=== PATIENT | male | born 1960 | race Caucasian/White ===

== ENCOUNTER 2018-09-15 15:04 | Inpatient (IN) | payer OTHER ==
[2018-09-15 15:26] VITALS: BMI 29.3
--- NOTE | 2018-09-15 15:29 | PDOC ---
Rapid Medical Evaluation Chief Complaint: CVA/TIA Time Seen by Provider: 09/15/18 15:21 Medical Evaluation: Allergies Allergy/AdvReac Type Severity Reaction Status Date / Time No Known Allergies Allergy Verified 09/15/18 15:22 09/15/18 15:23 I have performed a brief in-person evaluation of this patient. The patient presents with a chief complaint of: sent from PMD for eval- acute onset weakness, dizzy, some SOB las tpm and persistant today Pertinent physical exam findings: quiet, + dizzy I have ordered the following: CTScan, Labs, Ekg The patient will proceed to the ED for further evaluation 09/15/18 15:29 09/15/18 15:29 Discharge Disposition - Diagnosis Dizziness - Referrals - Patient Instructions - Post Discharge Activity
--- NOTE | 2018-09-15 15:56 | PDOC ---
History of Present Illness - General Chief Complaint: CVA/TIA Stated Complaint: DIZZINESS Time Seen by Provider: 09/15/18 15:21 History Source: Patient Exam Limitations: No Limitations - History of Present Illness Initial Comments: 09/15/18 15:53 [id number] with h/o CAD, AICD, paroxysmal SVT, CHF, IDDM, HTN, CKD, hypercholesterolemia, diverticulitis, tobacco use (smoker), and medication non- adherence who was instructed to come to the ED by his PCP for acute onset weakness, lightheadedness, and mild SOB all since yesterday evening, as well as fleeting episodes of left lip drooping and mildly slurred speech since early this morning (family cannot recall what time). He had a mild frontal headache last night but has not had this today. The patient and his state he was recently switched from furosemide to torsemide because he had "more congestion than normal". Otherwise they note no recent f/c/n/v/d/c, numbness, tingling, weakness, room-spinning sensation, palpitations, chest pain, or other symptoms. He has been able to walk normally despite the lightheadedness, and denies LOC or falls. Past History - Past Medical History Allergies/Adverse Reactions: Allergies Allergy/AdvReac Type Severity Reaction Status Date / Time No Known Allergies Allergy Verified 09/15/18 15:22 Home Medications: Ambulatory Orders Atorvastatin Ca [Lipitor] 20 mg PO HS 08/29/15 Furosemide [Lasix -] 80 mg PO BID 08/29/15 Insulin Lispro Protamin/Lispro [Humalog Mix 75-25 Kwikpen] 26 unit SQ PRN Aspirin [ASA -] 81 mg PO DAILY 09/15/18 Carvedilol [Coreg -] 12.5 mg PO BID 09/15/18 Insulin NPH Hum/Reg Insulin Hm [Humulin 70-30 Vial] 10 unit SQ AC 09/15/18 Magnesium Oxide [Magnesium] 400 mg PO BID 09/15/18 Sacubitril/Valsartan [Entresto 49 mg-51 mg Tablet] 2 each PO BID 09/15/18 Anemia: No Asthma: No Cancer: No Cardiac Disorders: Yes (CORONARY ARTERY DISEASE) CVA: No COPD: No CHF: Yes Dementia: No Diabetes: Yes GI Disorders: Yes (DYSPHAGIA,CHANGE IN BOWEL HABITS,CONSTIPATION,IBS,RECTAL BLEEDING) Disorders: No HTN: Yes Hypercholesterolemia: Yes Liver Disease: No Seizures: No Thyroid Disease: No - Surgical History Abdominal Surgery: No Appendectomy: No Cardiac Surgery: No Cholecystectomy: No Lung Surgery: No Neurologic Surgery: No Orthopedic Surgery: No - Immunization History Immunization Up to Date: Yes - Suicide/Smoking/Psychosocial Hx Smoking History: Never smoked Have you smoked in the past 12 months: No Number of Cigarettes Smoked Daily: 3 If you are a former smoker, when did you quit?: 01/2015 'Breaking Loose' booklet given: 02/25/15 Hx Alcohol Use: No Drug/Substance Use Hx: No Substance Use Type: None Hx Substance Use Treatment: No Review of Systems - Review of Systems Able to Perform ROS?: Yes Comments:: 09/15/18 15:55 GEN: generalized weakness, no fever, chills, malaise, or weight change HEENT: no ear pain, sore throat, vision change, or eye pain CV: no chest pain, palpitations, lightheadedness, syncope, or edema RESP: SOB, no cough, no wheezing GI: no abdominal pain, nausea, vomiting, diarrhea, constipation, or white/black/ bloody stool : no dysuria, hematuria, incontinence, retention, bleeding, or discharge MSK: no neck/back pain, muscle weakness/pain, or joint swelling/pain NEURO: vertigo, no headache, seizure, numbness, tingling, or focal weakness PSYCH: no substance use, no behavior change SKIN: no jaundice, no rash ROS otherwise negative except as noted in HPI *Physical Exam - Vital Signs Last Vital Signs Temp Pulse Resp BP Pulse Ox 97.9 F 72 18 103/77 100 09/15/18 15:22 09/15/18 15:22 09/15/18 15:22 09/15/18 15:22 09/15/18 15:22 - Physical Exam Comments: 09/15/18 16:30 GENERAL: well-appearing, A/Ox4, no distress, pleasant E[place]an-speaking male, accompanied by , answers questions appropriately HEENT: PERRLA, EOMI, moist mucous membranes NECK/BACK: no midline ttp, no spinal stepoff or deformity, no hematoma, full ROM , neck supple CARDIOVASCULAR: regular rate/rhythm, normal S1S2, 2/6 holosystolic murmur, strong peripheral pulses, capillary refill <2 seconds, extremities wwp, no edema LUNGS/RESPIRATORY: no respiratory distress, CTAB GI/ABDOMEN: symmetric [id number], normoactive BS, soft, no ttp, no midline pulsatile masses : no CVA tenderness EXTREMITIES: no muscle atrophy, no acute deformity SKIN: warm and dry, no pallor, no jaundice, no rash, no bruising, no skin breakdown, no cuts, no lesions NEUROLOGICAL: GCS 15, CN II-XII grossly intact, 5/5 strength proximally and distally, no facial droop NIH Stroke Scale - Last Known Well Date/Time & Onset Date Last Known Well: 09/14/18 Time Last Known Well: 19:00 - Initial Evaluation Level of consciousness: Alert Ask patient the month and their age: Answers both correctly Ask patient to open & close eyes; make fist and let go: Obeys both correctly Best gaze (horizontal eye movement): Normal Visual field testing: No visual field loss Facial paresis (Show teeth/raise eyebrows/close eyes tight): Normal symmetrical movement Motor Function: Left Arm: Normal Motor Function: Right Arm: Normal (extends arm 90 (or 45) degrees for 10 seconds without drift Motor Function: Left Leg: Normal (extends leg 30 degrees for 5 seconds without drift) Motor Function: Right Leg: Normal (extends leg 30 degrees for 5 seconds without drift) Limb Ataxia: No ataxia Sensory(Use pinprick test arms,legs,trunk,face/side to side): Normal Best language (Describe picture, name items, read sentences): No Aphasia Dysarthria (read several words): Normal articulation Extinction and Inattention: No abnormality - Total Score NIH Stroke Scale Score: 0 tPA Exclusion checklist 3-4.5h - Time Elapsed Date last known well: 09/14/18 Time last known well: 20:00 Elaspsed time: 1 Day(s) and 0 Hour(s) and 43 Minutes - Thrombolytic Therapy Candidate Is patient eligible for thrombolytic therapy: No - Exclusion Criteria 3-4.5 hr SBP greater than 185 or DBP greater than 110mmHg despite tx: No Recent IC/spinal surgery,head trauma or stroke<3mos.: No Hx IC hemorrhage, IC neoplasm, AV malformation or aneurysm: No Active internal bleeding: No Blding diathesis(low plt ct, inc PTT,INR>1.7 or use of NOAC): No Symptoms suggest subarachnoid hemorrhage: No CT demonstrates multilobar infarct(>1/3 cerebral hemiphere): No Arterial puncture at noncompressible site in previous 7 days: No Blood glucose concentration less than 50mg/dL (2.7mmol/L): No - Relative Exclusion Criteria 3-4.5 hr Life expectancy <1 yr or severe co-morbid illness: No : No Patient/family refused: No Rapid improvement: Yes Stroke severity too mild: Yes Recent acute UT (w/in previous 3 months): No Seizure at onset with postictal residual neuro impairments: No Major surgery or serious trauma w/in previous 14 days: No Recent GI or hemorrhage (w/in previous 21 days): No - Add'l Relative Exclusion 3-4.5 hr Age > 80: No Hx of both diabetes AND prior ischemic stroke: No Taking an oral anticoagulant regardless of INR: No NIHSS >25: No - Ineligibility reason(s) Reasons No tPA given: Outside of window - delayed arrival, See reason(s) noted above Heart Score/ECG Review - History History: Slightly suspicious - Electrocardiogram EKG: Normal - Age Age: 45-65 - Risk Factors Risk Factors Heart Score: Yes Hx Hypercholesterolemia, Yes Hx Hypertension, Yes Hx Diabetes, Yes Smoking History, Yes Positive family hx of cardiac disease Based on the list above the patient has:: >/=3 risk factors or Hx atherosclerotic disease - Troponin Troponin: 1-3x normal limit - Score Heart Score - Total: 4 #1 09/15/18 15:21 Sinus rhythm, rate 66, left axis deviation, Q waves in II, III, and aVF which are all old compared with 2016, an TWI in I, aVL, and V6 which are old as well. Critical Care Time/MDM Note - Medical Decision Making Note: 09/15/18 16:34 [id number] with CAD, HTN, HLD, IDDM and CHF p/w several complaints including lightheadedness, chest and tongue heaviness, congested feeling, and yesterday had a headache (resoved). Initial Vital Signs Temp Pulse Resp BP Pulse Ox 97.9 F 72 18 103/77 100 09/15/18 15:22 09/15/18 15:22 09/15/18 15:22 09/15/18 15:22 09/15/18 15:22 Exam: As noted in Physical Exam section. DDX IBNLT: dehydration, orthostatic hypotension, ACS, CHF exacerbation pre- syncope, TIA, etc W/U ordered: Labs as noted below, EKG TX ordered: None at this time EKG: Reviewed; results as noted in ECG Review section. Laboratory Tests 09/15/18 09/15/18 09/15/18 16:00 16:00 16:00 WBC 6.1 RBC 4.45 Hgb 13.2 Hct 39.4 MCV 88.5 MCH 29.6 MCHC 33.4 RDW 20.1 H Plt Count 233 MPV 8.8 Absolute Neuts (auto) 2.9 Neutrophils % 48.0 D Lymphocytes % 35.9 D Monocytes % 12.9 H D Eosinophils % 2.5 D Basophils % 0.7 D Nucleated RBC % 0 PT with INR 12.10 INR 1.03 Sodium 137 Potassium 4.6 Chloride 106 Carbon Dioxide 26 Anion Gap 6 L BUN 19.2 H Creatinine 1.3 Est GFR (CKD-EPI)AfAm 69.71 Est GFR (CKD-EPI)NonAf 60.14 Random Glucose 127 H Calcium 8.6 Magnesium 2.2 Total Bilirubin 1.3 H AST 11 L ALT 19 Alkaline Phosphatase 102 Creatine Kinase 50 Troponin I 0.06 H B-Natriuretic Peptide 1502.5 H Total Protein 7.1 Albumin 3.8 Patient's repeat exam is benign. However his family states that about once an hour he is having 2-minute episodes of "heavy speech" and complains of tongue heaviness. CT Head shows possible small right insular cortical infarct. I have spoken with Dr. Schneider's DARELL Marry Lind and placed consult order. She will come see the patient and review orders; question is whether this is an acute process or atypical migraine or other process. States they may end up doing CTA versus MRI versus other additional diagnostic studies. Vital Signs Temperature 97.9 F 09/15/18 15:22 Pulse Rate 71 09/15/18 17:03 Respiratory Rate 16 09/15/18 17:03 Blood Pressure 121/86 09/15/18 17:03 O2 Sat by Pulse Oximetry (%) 95 09/15/18 17:03 09/15/18 19:44 The Pt is unsafe for discharge at this time. They require further hospital observation, workup, and treatment. Microblog sent to [facility] for admission. Blank Decision to Admit order is placed per ED protocol. 09/15/18 20:[address] Little; patient going to inpatient Tele, to Dr. Ge, Decision to Admit order corrected. *DC/Admit/Observation/Transfer Diagnosis at time of Disposition: Slurred speech, Dizziness, Elevated troponin - Discharge Dispostion Condition at time of disposition: Guarded Decision to Admit order: Yes - Referrals Referrals: Irvin Davenport MD [Primary Care Provider] - - Patient Instructions - Post Discharge Activity
[2018-09-15 16:30] LABS: BASO % 0.7 % (0-2.0); EOS % 2.5 % (0-4.5); HEMATOCRIT 39.4 % (35.4-49); HEMOGLOBIN 13.2 GM/dL (11.7-16.9); LYMPH % 35.9 % (8-40); MCH 29.6 pg (25.7-33.7); MCHC 33.4 g/dl (32.0-35.9); MEAN CELL VOLUME 88.5 fl (80-96); MEAN PLT VOLUME 8.8 fl (7.5-11.1); MONO % 12.9 % (3.8-10.2); PLATELET COUNT 233 K/MM3 (134-434); RBC 4.45 M/mm3 (4.00-5.60); RDW 20.1 % (11.9-15.9); WHITE BLOOD COUNT 6.1 K/mm3 (4.0-10.0)
[2018-09-15 16:48] LABS: INR 1.03 (0.83-1.09); PROTHROMBIN TIME (PATIENT) 12.1 SEC (9.7-13.0)
[2018-09-15 16:53] LABS: ALBUMIN 3.8 g/dl (3.4-5.0); BILIRUBIN,TOTAL 1.3 mg/dL (0.2-1); BLOOD UREA NITROGEN 19.2 mg/dL (7-18); CALCIUM 8.6 mg/dL (8.5-10.1); CREATININE 1.3 mg/dL (0.55-1.3); MAGNESIUM 2.2 mg/dL (1.8-2.4); N-TERMINAL BNP 1502.5 pg/ml (5-125); POTASSIUM 4.6 mmol/L (3.5-5.1); TOT PROT 7.1 g/dl (6.4-8.2)
--- NOTE | 2018-09-15 18:11 | PDOC ---
Documentation entered by Anjel Olmedo SCRIBE, acting as scribe for Riky Asher MD. Riky Asher MD: This documentation has been prepared by the Honorio luis Elijah, SCRIBE, under my direction and personally reviewed by me in its entirety. I confirm that the documentation accurately reflects all work, treatment, procedures, and medical decision making performed by me. Attending Attestation - Resident Resident Name: Jennifer Patel - ED Attending Attestation I have performed the following: I have examined & evaluated the patient, The case was reviewed & discussed with the resident, I agree w/resident's findings & plan - HPI HPI: 09/15/18 17:03 Patient is a 58 year old male with a significant past medical history of CAD, AICD, paroxysmal SVT, CHF, IDDM, HTN, CKD, hypercholesterolemia, diverticulitis , tobacco use (smoker), and medication non-adherence who presents to the ED with complaint of tongue heaviness and speech problem since last night. Pt notes he has been ahving some sob/cole for the past week, recently had his furosimide changed to torsamide. pt endorses mild chest pressure, denies any frenk cp, n/v, diarrhea, constipation, numbness, tingling, weakness, room- spinning sensation, palpitations. Allergies: NKA Card: [place] PCP: Dr. Davenport - Physicial Exam PE: 09/15/18 17:10 GENERAL: The patient is awake, alert, and fully oriented, Nontoxic - in no acute distress. HEAD: Normocephalic, atraumatic. EYES: extraocular movements intact, sclera anicteric, conjunctiva clear. ENT: Normal voice, Moist mucous membranes. NECK: Normal range of motion, supple LUNGS: Breath sounds equal, clear to auscultation bilaterally. No wheezes, no rhonchi, no rales. HEART: Regular rate and rhythm, normal S1 and S2 without murmur, rub or gallop. ABDOMEN: Soft, nontender, No guarding, no rebound. No CVA tenderness EXTREMITIES: Normal range of motion, no edema. PSYCH: Normal mood, normal affect. SKIN: Warm, Dry, normal turgor, NEURO: Mental status: The patient is oriented x3. Cranial nerves: Cranial nerves II through XII are intact Motor: The upper extremities are 5 over 5 in all muscle groups. The lower extremities are 5 over 5 in all muscle groups. Negative pronator drift Sensation: Sensation is intact to light touch throughout. romberg negative Cerebellar: [id number] is normal in both upper extremities. - Medical Decision Making 09/15/18 17:15 ddx metabolic derangement, chf, acs, ?togue heaviness - ?cva NIHSS = 0 09/15/18 19:25 labs reviewed bnp elevated trop borderline ct head notable for pssible small rith insular cortical infarct will admit for further management Heart Score/ECG Review - ECG Impressions Comment:: 09/15/18 17:18 Twelve-lead EKG was performed and reviewed by me. There is normal sinus rhythm with a normal rate. rate of 66 L axis deviation abnormal r wave progression NIH Stroke Scale - Last Known Well Date/Time & Onset Date Last Known Well: 09/14/18 Time Last Known Well: 19:00 - Initial Evaluation Level of consciousness: Alert Ask patient the month and their age: Answers both correctly Ask patient to open & close eyes; make fist and let go: Obeys both correctly Best gaze (horizontal eye movement): Normal Visual field testing: No visual field loss Facial paresis (Show teeth/raise eyebrows/close eyes tight): Normal symmetrical movement Motor Function: Left Arm: Normal Motor Function: Right Arm: Normal (extends arm 90 (or 45) degrees for 10 seconds without drift Motor Function: Left Leg: Normal (extends leg 30 degrees for 5 seconds without drift) Motor Function: Right Leg: Normal (extends leg 30 degrees for 5 seconds without drift) Limb Ataxia: No ataxia Sensory(Use pinprick test arms,legs,trunk,face/side to side): Normal Best language (Describe picture, name items, read sentences): No Aphasia Dysarthria (read several words): Normal articulation Extinction and Inattention: No abnormality - Total Score NIH Stroke Scale Score: 0
--- NOTE | 2018-09-15 21:55 | HP ---
CHIEF COMPLAINT: slurred speech Card: [place] PCP: Dr. Davenport HISTORY OF PRESENT ILLNESS: 58 year old man ex smoker w/ htn, dlp, brought in with for having left facial droop, 9/10 headache, tongue heaviness, slurred speech, swallowing difficulty which started 10pm 09/14. Headache resolved shortly after taking a tylenol. Other symptoms also resolved except for slurred speech and which lasted until shortly before arrival to ER. head ct read from er showed small right insular cortical infarct. ER course was notable for: (1) head ct (2) cxr (3) Recent Travel: no PAST MEDICAL HISTORY: CAD, AICD, paroxysmal SVT, CHF, IDDM, HTN, CKD, hypercholesterolemia, diverticulitis, Crohns dz - on Remicade PAST SURGICAL HISTORY: AICD placement Social History: Smoking: ex smoker (smoked only socially) Alcohol: no Drugs: no Family History: mother with bone cancer Allergies No Known Allergies Allergy (Verified 09/15/18 15:22) HOME MEDICATIONS: Home Medications Medication Instructions Recorded Atorvastatin Ca [Lipitor] 20 mg PO HS 08/29/15 Furosemide [Lasix -] 80 mg PO BID 08/29/15 Insulin Lispro Protamin/Lispro 26 unit SQ PRN 08/29/15 [Humalog Mix 75-25 Kwikpen] Aspirin [ASA -] 81 mg PO DAILY 09/15/18 Carvedilol [Coreg -] 12.5 mg PO BID 09/15/18 Insulin NPH Hum/Reg Insulin Hm 10 unit SQ AC 09/15/18 [Humulin 70-30 Vial] Magnesium Oxide [Magnesium] 400 mg PO BID 09/15/18 Sacubitril/Valsartan [Entresto 49 2 each PO BID 09/15/18 mg-51 mg Tablet] REVIEW OF SYSTEMS CONSTITUTIONAL: Absent: fever, chills, diaphoresis, generalized weakness, malaise, loss of appetite, weight change HEENT: Absent: rhinorrhea, nasal congestion, throat pain, throat swelling, difficulty swallowing, mouth swelling, ear pain, eye pain, visual changes CARDIOVASCULAR: Absent: chest pain, syncope, palpitations, irregular heart rate, lightheadedness , peripheral edema RESPIRATORY: Absent: cough, shortness of breath, dyspnea with exertion, orthopnea, wheezing, stridor, hemoptysis GASTROINTESTINAL: Absent: abdominal pain, abdominal distension, nausea, vomiting, diarrhea, constipation, melena, hematochezia GENITOURINARY: Absent: dysuria, frequency, urgency, hesitancy, hematuria, flank pain, genital pain MUSCULOSKELETAL: Absent: myalgia, arthralgia, joint swelling, back pain, neck pain SKIN: Absent: rash, itching, pallor HEMATOLOGIC/IMMUNOLOGIC: Absent: easy bleeding, easy bruising, lymphadenopathy, frequent infections ENDOCRINE: Absent: unexplained weight gain, unexplained weight loss, heat intolerance, cold intolerance NEUROLOGIC: Absent: , focal weakness or paresthesias, dizziness, unsteady gait, seizure, mental status changes, bladder or bowel incontinence present-headache, dysarthria, dsyphagia PSYCHIATRIC: Absent: anxiety, depression, suicidal or homicidal ideation, hallucinations. PHYSICAL EXAMINATION Vital Signs - 24 hr 09/15/18 09/15/18 15:22 17:03 Temperature 97.9 F Pulse Rate 72 Pulse Rate [ 71 Apical] Respiratory 18 16 Rate Blood Pressure 103/77 Blood Pressure 121/86 [Right] O2 Sat by Pulse 100 95 Oximetry (%) GENERAL: Awake, alert, and fully oriented, in no acute distress. HEAD: Normal with no signs of trauma. EYES: Pupils equal, round and reactive to light, extraocular movements intact, sclera anicteric, conjunctiva clear. No lid lag. EARS, NOSE, THROAT: Ears normal, nares patent, oropharynx clear without exudates. Moist mucous membranes. NECK: Normal range of motion, supple without lymphadenopathy, JVD, or masses. LUNGS: Breath sounds equal, clear to auscultation bilaterally. No wheezes, and no crackles. No accessory muscle use. HEART: Regular rate and rhythm, normal S1 and S2 without murmur, rub or gallop. ABDOMEN: Soft, nontender, not distended, normoactive bowel sounds, no guarding, no rebound, no masses. MUSCULOSKELETAL: Normal range of motion at all joints. No bony deformities or tenderness. No CVA tenderness. UPPER EXTREMITIES: 2+ pulses, warm, well-perfused. No cyanosis. No clubbing. No peripheral edema. LOWER EXTREMITIES: 2+ pulses, warm, well-perfused. No calf tenderness. No peripheral edema. NEUROLOGICAL: Cranial nerves II-XII intact. Normal speech. Normal gait. No gross motor or sensory deficits in extremities on my assessment PSYCHIATRIC: Cooperative. Good eye contact. Appropriate mood and affect. SKIN: Warm, dry, normal turgor, no rashes or lesions noted, normal capillary refill. Laboratory Results - last 24 hr 09/15/18 09/15/18 09/15/18 16:00 16:00 16:00 WBC 6.1 RBC 4.45 Hgb 13.2 Hct 39.4 MCV 88.5 MCH 29.6 MCHC 33.4 RDW 20.1 H Plt Count 233 MPV 8.8 Absolute Neuts (auto) 2.9 Neutrophils % 48.0 D Lymphocytes % 35.9 D Monocytes % 12.9 H D Eosinophils % 2.5 D Basophils % 0.7 D Nucleated RBC % 0 PT with INR 12.10 INR 1.03 Sodium 137 Potassium 4.6 Chloride 106 Carbon Dioxide 26 Anion Gap 6 L BUN 19.2 H Creatinine 1.3 Est GFR (CKD-EPI)AfAm 69.71 Est GFR (CKD-EPI)NonAf 60.14 Random Glucose 127 H Calcium 8.6 Magnesium 2.2 Total Bilirubin 1.3 H AST 11 L ALT 19 Alkaline Phosphatase 102 Creatine Kinase 50 Troponin I 0.06 H B-Natriuretic Peptide 1502.5 H Total Protein 7.1 Albumin 3.8 09/15/18 19:58 WBC RBC Hgb Hct MCV MCH MCHC RDW Plt Count MPV Absolute Neuts (auto) Neutrophils % Lymphocytes % Monocytes % Eosinophils % Basophils % Nucleated RBC % PT with INR INR Sodium Potassium Chloride Carbon Dioxide Anion Gap BUN Creatinine Est GFR (CKD-EPI)AfAm Est GFR (CKD-EPI)NonAf Random Glucose Calcium Magnesium Total Bilirubin AST ALT Alkaline Phosphatase Creatine Kinase Troponin I 0.06 H B-Natriuretic Peptide Total Protein Albumin imaging studies reviewed ekg showed sinus rhythm ASSESSMENT/PLAN: #CVA - neuro symptoms described above along with head ct findings. NIH stroke scale was 1. -admit to telemetry -cardiac monitoring -bed rest -npo -asa 325mg -high dose lipitor- 80mg po -echo -carotid duplex b/l -mri of brain -head/neck mra -PT eval -neuro consult -speech and swallow eval -neuro checks q4hrs -lipid panel, a1c #DM - -insulin sliding scale #CAD - sinus rhythm on ekg -asa -statin #Crohns - controlled on monthly injections of Remicade #DVT ppx -scds Visit type - Emergency Visit Emergency Visit: Yes ED Registration Date: 09/15/18 Care time: The patient presented to the Emergency Department on the above date and was hospitalized for further evaluation of their emergent condition. - New Patient This patient is new to me today: Yes Date on this admission: 09/15/18 - Critical Care Critical Care patient: No
[2018-09-15] MEDS ORDERED: ROSUVASTATIN CA 40 MG TABLET PO SCH (22:00)
[2018-09-15] MEDS ORDERED: INSULIN (NOVOLOG) ASPART 100 UNITS/ML 10ML VIAL ONE (22:13)
[2018-09-15] MEDS ORDERED: HEPARIN NA (PORCINE) 5,000 UNITS/ML 1ML VIAL ONE (22:13)
[2018-09-15] MEDS: HEPARIN NA (PORCINE) 5,000 UNITS/ML 1ML VIAL SQ SCH (22:21)
[2018-09-15] MEDS: INSULIN SLIDING SCALE (NOVOLOG) 1 VIAL SQ SCH (22:22)
[2018-09-16] MEDS ORDERED: FUROSEMIDE 40 MG TABLET (FP) PO SCH (06:00)
[2018-09-16] MEDS: INSULIN SLIDING SCALE (NOVOLOG) 1 VIAL SQ SCH ×3 (06:12→21:11)
[2018-09-16 09:00] LABS: HEMATOCRIT 42.1 % (35.4-49); HEMOGLOBIN 13.7 GM/dL (11.7-16.9); MCH 28.9 pg (25.7-33.7); MCHC 32.5 g/dl (32.0-35.9); MEAN CELL VOLUME 88.9 fl (80-96); MEAN PLT VOLUME 8.7 fl (7.5-11.1); PLATELET COUNT 219 K/MM3 (134-434); RBC 4.73 M/mm3 (4.00-5.60); RDW 19.5 % (11.9-15.9); WHITE BLOOD COUNT 6.1 K/mm3 (4.0-10.0)
[2018-09-16 09:27] LABS: BLOOD UREA NITROGEN 18.4 mg/dL (7-18); CREATININE 1.3 mg/dL (0.55-1.3); POTASSIUM 4.4 mmol/L (3.5-5.1)
[2018-09-16] MEDS ORDERED: SACUBITRIL/VALSARTAN 49 MG-51 MG TABLET PO SCH (10:00)
--- NOTE | 2018-09-16 10:17 | CONSULT ---
Admitting History and Physical - Primary Care Physician PCP: Aster Ge - Admission History of Present Illness: Per EMR: 58 year old man ex smoker w/ htn, dlp, brought in with for having left facial droop, 9/10 headache, tongue heaviness, slurred speech, swallowing difficulty which started 10pm 09/14. Headache resolved shortly after taking a tylenol. Other symptoms also resolved except for slurred speech and which lasted until shortly before arrival to ER. head ct read from er showed small right insular cortical infarct. Pt reports slurred speech came and went, with drooling and dysphagia. Presently , pt reports that he is back to normal but he feels exhausted as if he ran a marathon. He feels that his breathing is labored. No Dyspnea observed. Electrocardiagram reviewed with nursing. History Source: Patient, Family Member, Medical Record Limitations to Obtaining History: No Limitations, Language Barrier - Past Medical History Cardiovascular: Yes: CAD, CHF (sstolic CHF), HTN Renal/: Yes: Renal Inusuff Rheumatology: Yes: Gout Endocrine: Yes: Diabetes Mellitus - Smoking History Smoking history: Former smoker Have you smoked in the past 12 months: No Aproximately how many cigarettes per day: 3 If you are a former smoker, when did you quit?: 01/2015 - Alcohol/Substance Use Hx Alcohol Use: No - Social History ADL: Independent History of Recent Travel: No History - Admission Reason For Visit: DIZZINESS, SLURRED SPEECH,ELEVATED TROPONIN LEVEL - Diagnostics X-ray: Report Reviewed CT Scan: Report Reviewed Other: Report Reviewed (electrocardiagram) - General Mental Status: Alert and Oriented, Awake and Alert, Able to Follow Commands Attention: Intact Ability to Follow Directions: Excellent Head/Neck Control: WFL - Hearing Hearing: Normal Speech Evaluation - Communication Primary Language: TAIWANESE Communication: Yes: Within Normal Limits Oral Expression Ability: Yes: No Impairment - Speech Production Able to Make Needs Known: Yes: WNL Intelligibility: Yes: WNL - Speech Characteristics Voice Loudness: Normal Voice Pitch: Yes: Normal Voice Phonatory-based Quality: Yes: Normal Speech Pattern: Normal Speech Clarity: < 100% Nasal Resonance: Normal Articulation: Yes: Precise Rate of Speech: Intact - Language/Auditory Comprehension Follows: Yes: 2 Stage Simple Commands - Language/Verbal Expression Able to Respond to Simple Queries: Yes: WNL Able to Communicate Wants and Needs: Yes: WNL Functional Communication Status: Yes: WNL Attention: Yes: Intact - Memory/Perception terminal system operator Memory: Yes: WNL Short Term Memory: Yes: WNL - Swallow Evaluation/Bedside Assessment Current Nutritional Intake: NPO Oral Secretions: Yes: WFL Dentition: Yes: Adequate Facial Symmetry at Rest: Symmetrical Facial Symmetry on Retraction: Symmetrical Facial Movement: Controlled Sensation: Normal Against Resistance Opening: Normal Against Resistance Closing: Normal Pucker Lips: Normal Smile: Normal Lingual Movement: Normal, Symmetric Lingual Speed of Movement: Normal Lingual Movement Strgth Against Opposition: Normal Lingual Movement Characteristics: Normal Velopharyngeal Movement: Normal Laryngeal Movement: Able to Palpate Rate of Intake: WFL Bolus Size: WFL Labial Seal: WFL Chewing: WFL Oral Prep Time: WFL A-P Transit: WFL Pocketing: None Timing of Swallow: WFL Coughing/Throat Clear: No Change in Voice: No Recommendations - Speech Evaluation, Impression/Plan Impression: Speech,swallow,cognition,language intact. Abnormal electrocardiagram. Nursing aware - Disposition Discharge to: To be Determined - Dysphagia Impressions/Plan Swallowing Skills: WF Dysphagia Impressions: No Impairment *Silent aspiration: cannot be R/O at bedside Recommendations: Other (PO diet, once medically stable.) - Recommendations Diet Consistency: Regular Medication Administration: Whole with water Liquids: Thin Liquids
--- NOTE | 2018-09-16 11:42 | ECHO ---
Name: CHEIKHBRIAN Exam:Adult Echocardiogram Study Date: 09/16/2018 10:33 AM Age: 58 yrs Reason For Study: Source of Emboli Height: 66 in Weight: 182 lb BSA: 1.9 m2 MMode/2D Measurements & Calculations IVSd: 0.82 cm Ao root diam: 3.0 cm LVIDd: 6.5 cm LVIDs: 6.0 cm LVPWd: 1.1 cm EDV(Teich): 214.8 ml LVOT diam: 2.3 cm ESV(Teich): 178.9 ml LAV (MOD-bp): 114.0 ml Doppler Measurements & Calculations MV E max pastor: 75.5 cm/sec MR max pastor: 506.0 cm/sec MV A max pastor: 28.6 cm/sec MR max P.4 mmHg MV E/A: 2.6 TR max pastor: 331.8 cm/sec Med Peak E' Pastor: 3.6 cm/sec TR max P.6 mmHg Med E/e': 21.0 Lat Peak E' Pastor: 5.8 cm/sec Lat E/e': 13.0 Left Ventricle The left ventricle is moderately dilated. Left ventricular systolic function is severely reduced. Eje ction Fraction = 15-20%. The transmitral spectral Doppler flow pattern is suggestive of pseudonormalization . There is severe global hypokinesis of the left ventricle. The left ventricular apex is not well visualized. Right Ventricle The right ventricle is normal size. The right ventricular systolic function is grossly normal. Atria The left atrium is moderately dilated. The right atrium is mildly dilated. The interatrial septum is intact with no evidence for an atrial septal defect. Injection of agitated saline demonstrated no shunt. Mitral Valve The mitral valve is normal in structure and function. There is no mitral valve stenosis. There is mod erate mitral regurgitation. Tricuspid Valve The tricuspid valve is normal in structure and function. There is mild to moderate tricuspid regurgit ation. Right ventricular systolic pressure is elevated at 40-50mmHg. Aortic Valve The aortic valve opens well. No hemodynamically significant valvular aortic stenosis. No aortic regur gitation is present. Pulmonic Valve The pulmonic valve is not well seen, but is grossly normal. There is no pulmonic valvular stenosis. T race pulmonic valvular regurgitation. Great Vessels The aortic root is normal size. Pericardium/Pleura There is no pericardial effusion. Interpretation Summary The left ventricle is moderately dilated. There is severe global hypokinesis of the left ventricle. Left ventricular systolic function is severely reduced. Ejection Fraction = 15-20%. The left atrium is moderately dilated. Injection of agitated saline demonstrated no shunt. There is moderate mitral regurgitation. There is mild to moderate tricuspid regurgitation. Right ventricular systolic pressure is elevated at 40-50mmHg. The left ventricular apex is not well visualized. MD Phil Katz 09/16/2018 11:41 AM
--- NOTE | 2018-09-16 11:56 | EKG ---
Test Reason : Blood Pressure : / mmHG Vent. Rate : 066 BPM Atrial Rate : 066 BPM P-R Int : 164 ms QRS Dur : 114 ms QT Int : 436 ms P-R-T Axes : 054 -57 094 degrees QTc Int : 457 ms NORMAL SINUS RHYTHM POSSIBLE LEFT ATRIAL ENLARGEMENT LEFT AXIS DEVIATION INFERIOR INFARCT (CITED ON OR BEFORE 29-AUG-2015) ANTEROLATERAL INFARCT (CITED ON OR BEFORE 29-AUG-2015) NONSPECIFIC T WAVE ABNORMALITY ABNORMAL ECG WHEN COMPARED WITH ECG OF 29-AUG-2015 12:27, QRS DURATION HAS INCREASED Confirmed by THELMA LENNON MD ([id number]) on 09/16/2018 11:56:08 AM Referred By: Confirmed By:THELMA LENNON MD
[2018-09-16] MEDS: SACUBITRIL/VALSARTAN 49 MG-51 MG TABLET PO SCH ×3 (12:10→23:58)
[2018-09-16] MEDS: ASPIRIN 325 MG TABLET PO SCH (12:10)
[2018-09-16] MEDS: CARVEDILOL 12.5 MG TABLET (FP) PO SCH ×3 (12:10→23:58)
[2018-09-16] MEDS: HEPARIN NA (PORCINE) 5,000 UNITS/ML 1ML VIAL SQ SCH ×2 (12:11→21:10)
--- NOTE | 2018-09-16 12:51 | CONSULT ---
Consult - text type - Consultation Consultation Note: NEUROLOGY CONSULT GREATLY APPRECIATED: Events reviewed and discussed with residents Soniya and Long. and daughter at bedside aiding in translation. 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 S/P PPM/defibrillator. On: Estresto, lasix, asa 81, remicade, atorvastatin, carvedilol 12.5 mg BID, insulin and Mg. Notes history of headaches since a young age attributed to lack of sleep, missed meals, too much alcohol, and stress. He notes improvement in his headaches when started on Carvedilol for his cardiac disease approx 10 years ago. However, MONTGOMERY's have increased in frequency and now occur 2/week. Yesterday evening he and his family noted his speech was somewhat "slurred," however he went to bed but did not sleep well due to "chest pains" and SOB. He awoke in AM with persistent slurred speech and then a "strong" headache at the vertex of his head with photophobia, phonophobia, kinesiophobia. He took two Tylenol and laid down for two hours to rest and then woke up with acute "tingling" down the left hand. Today he feels "back to normal." He describes his previous strokes presented similarly with slurred speech, chest pains and headache; however these similarly resolved during hospitalization, left no discernable deficits and required no rehabilitation. Review of systems: poor sleep due to chest pains. He admits to depression and memory loss. FH+ father with stroke in 60s, 2 daughters in 20s with migraines, "growing pains " and bruxism. Head CT (reviewed): Mild atrophy. Multiple, chronic, B?L lacunar infarcts. Carotid duplex: Mild atherosclerotic disease without hemodynamically significant stenosis. EKG- Normal Sinus Rhythm, ECHO- EF= 15-30% A1c= 6.9%, BNP 1502, TG 164; Chol 122; HDL 33; MCV 88.5 Prior sleep study 04/2015 notes 4 PLMS and 12 limb arousals PEMA: 118/62. Cor reg. No bruits. Neck supple. Neg SLR. s/p PPM NEURO: Awake, alert, speech sparse but fluent. Ox "[facility]" "I don't know month or date." 2019. TRUMP. Can reverse. 05/22 recall @ 3 min. + glabella CNII-CNXII: EOM's full. Full . No facial. Gag ok. Motor: No drift. Strength normal. Reflexes normal and symmetric. L Babinski equivocal Coordination: No FTN dystaxia. Sensation: Normal to vibration and pinprick throughout. Romberg - Gait: Normal including heel and toes. Impression: Essentially normal neurological exam. No signs of a significant stroke. Transient Left hand numbness could be vascular (TIA) but more likely represents Complicated Migraine Underlying Migraine Headaches Pseudodementia suggesting Depression Suggest: Continue telemetry and cardiology evaluation to exclude a source of cardiogenic embolism (necessitating anticoagulation) Continue ASA, Statin, Continue carvedilol 12.5 mg BID for both migraine prophylaxis and BP control Check Fe++, Iron, TIBC, check B12, TSH Consider addition of Buproprion 150 mg XL qd for depression. Start Depakote ER 250 qHS x 4 days then 500 mg QHS for migraine prophylaxis. Neuro f/u as out patient. Thank you very much, Osmani Schneider MD
--- NOTE | 2018-09-16 12:55 | PN ---
Progress Note (short form) - Note Progress Note: pt seen/ examined in tele chart reviewed all f/u noted family at bedside Vital Signs Temp 97.4 F L 09/16/18 08:55 Pulse 57 L 09/16/18 08:55 Resp 18 09/16/18 08:55 BP 118/62 09/16/18 08:55 Pulse Ox 98 09/16/18 08:55 Intake & Output 09/15/18 09/16/18 09/16/18 23:59 11:59 23:59 Weight 182 lb 182 lb Other: Voiding Method Toilet Toilet Height 5 ft 6 in Body Mass Index (BMI) 29.3 Weight Measurement Method Standing Scale Weight Measurement Method Est/Stated by Patient Active Medications Aspirin (Asa -) 325 mg PO DAILY [facility] Last Admin: 09/16/18 12:10 Dose: Not Given Atorvastatin Calcium (Lipitor -) 80 mg PO HS [facility] Carvedilol (Coreg -) 12.5 mg PO BID [facility] Last Admin: 09/16/18 12:10 Dose: Not Given Furosemide (Lasix -) 80 mg PO BIDLASIX [facility] Last Admin: 09/16/18 06:24 Dose: 80 mg Heparin Sodium (Porcine) (Heparin -) 5,000 unit SQ BID [facility] Last Admin: 09/16/18 12:11 Dose: 5,000 unit Insulin Aspart (Novolog Vial Sliding Scale -) 1 vial SQ ACHS [facility]; Protocol Last Admin: 09/16/18 06:12 Dose: Not Given Sacubitril/Valsartan (Entresto 49 Mg-51 Mg Tablet) 1 tab PO BID [facility] Last Admin: 09/16/18 12:10 Dose: Not Given CBC, BMP 09/16/18 08:43 09/16/18 08:43 ech-- Severe lv dysfunction. ct head - reviewed. Physical exam Awake/ comfortable S1 s2 regular Lungs decreased at bases Abd- soft, NT no edema. Neuro- alert/ awake PLAN Acute cva Severe lv dysfunction Hypertension Meds reviewed Continue present care Neuro on case Cardiology to follow Discussed with pts family in detail will follow Discussed with Nursing staff also
[2018-09-16] MEDS: TORSEMIDE 20 MG TABLET (FP) PO SCH (13:57)
[2018-09-16] MEDS: ACETAMINOPHEN 325 MG TABLET (FP) PO PRN (13:57)
--- NOTE | 2018-09-16 14:12 | CON.CARD ---
Cardiology Consult (text) - Consultation Consultation Note: cc: change in speech hpi: 58 yo with h/o aflutter s/p ablation (no longer on ac), systolic chf (NICM ), ICD, CKD, HTN, CAD (no pci), possible scarlet fever/rheumatic fever as a child, DM here with change in speech. Yesterday noticed change in speech so came to ER, being evaluated for cva. Has had worsening cole past few weeks and following with cardio dr torre to uptitrate his diuretic. No cp palps dizzy loc pnd orthopnea le edema. pmh: per hpi, gout psh: ICD social: former fam: father with CHF and multiple DC's starting in his 50's. ros: per hpi; all others normal meds: Home Medications Medication Instructions Recorded Atorvastatin Ca [Lipitor] 20 mg PO HS 08/29/15 Furosemide [Lasix -] 80 mg PO BID 08/29/15 Insulin Lispro Protamin/Lispro 26 unit SQ PRN 08/29/15 [Humalog Mix 75-25 Kwikpen] Aspirin [ASA -] 81 mg PO DAILY 09/15/18 Carvedilol [Coreg -] 12.5 mg PO BID 09/15/18 Insulin NPH Hum/Reg Insulin Hm 10 unit SQ AC 09/15/18 [Humulin 70-30 Vial] Magnesium Oxide [Magnesium] 400 mg PO BID 09/15/18 Sacubitril/Valsartan [Entresto 49 2 each PO BID 09/15/18 mg-51 mg Tablet] Current Medications Generic Name Dose Route Start Last Admin Trade Name Freq PRN Reason Stop Dose Admin Acetaminophen 650 mg 09/16/18 13:42 09/16/18 13:57 Tylenol - PO 650 mg Q6H PRN Administration PAIN 6-10 Aspirin 325 mg 09/16/18 10:00 09/16/18 12:10 Asa - PO Not Given DAILY JANICE Atorvastatin Calcium 80 mg 09/16/18 22:00 Lipitor - PO HS JANICE Carvedilol 12.5 mg 09/16/18 10:00 09/16/18 12:10 Coreg - PO Not Given BID JANICE Heparin Sodium (Porcine) 5,000 unit 09/15/18 22:00 09/16/18 12:11 Heparin - SQ 5,000 unit BID JANICE Administration Insulin Aspart 1 vial 09/15/18 22:00 09/16/18 13:02 Novolog Vial Sliding Scale - SQ 2 unit ACHS JANICE Administration Protocol Sacubitril/Valsartan 1 tab 09/16/18 10:00 09/16/18 12:10 Entresto 49 Mg-51 Mg Tablet PO Not Given BID JANICE Torsemide 80 mg 09/16/18 14:00 09/16/18 13:57 Demadex - PO 80 mg BIDLASIX JANICE Administration Vital Signs Period Temp Pulse Resp BP Sys/Grossman Pulse Ox Last 24 Hr 97.4 F-98.2 F 57-72 16-20 103-126/60-86 95-100 nad rrr s1s2 no mrg cta bl nl eff aaox3 no le e/c/c abd nt nd pos bs pos dp pt, no carotid bruits no jaundice, diaphoresis Laboratory Last Values WBC 6.1 K/mm3 (4.0-10.0) 09/16/18 08:43 RBC 4.73 M/mm3 (4.00-5.60) 09/16/18 08:43 Hgb 13.7 GM/dL (11.7-16.9) 09/16/18 08:43 Hct 42.1 % (35.4-49) 09/16/18 08:43 MCV 88.9 fl (80-96) 09/16/18 08:43 MCH 28.9 pg (25.7-33.7) 09/16/18 08:43 MCHC 32.5 g/dl (32.0-35.9) 09/16/18 08:43 RDW 19.5 % (11.9-15.9) H 09/16/18 08:43 Plt Count 219 K/MM3 (134-434) 09/16/18 08:43 MPV 8.7 fl (7.5-11.1) 09/16/18 08:43 Absolute Neuts (auto) 2.9 K/mm3 (1.5-8.0) 09/15/18 16:00 Neutrophils % 48.0 % (42.8-82.8) D 09/15/18 16:00 Lymphocytes % 35.9 % (8-40) D 09/15/18 16:00 Monocytes % 12.9 % (3.8-10.2) H D 09/15/18 16:00 Eosinophils % 2.5 % (0-4.5) D 09/15/18 16:00 Basophils % 0.7 % (0-2.0) D 09/15/18 16:00 Nucleated RBC % 0 % (0-0) 09/15/18 16:00 PT with INR 12.10 SEC (9.7-13.0) 09/15/18 16:00 INR 1.03 (0.83-1.09) 09/15/18 16:00 Sodium 140 mmol/L (136-145) 09/16/18 08:43 Potassium 4.4 mmol/L (3.5-5.1) 09/16/18 08:43 Chloride 105 mmol/L (98-107) 09/16/18 08:43 Carbon Dioxide 28 mmol/L (21-32) 09/16/18 08:43 Anion Gap 7 MMOL/L (8-16) L 09/16/18 08:43 BUN 18.4 mg/dL (7-18) H 09/16/18 08:43 Creatinine 1.3 mg/dL (0.55-1.3) 09/16/18 08:43 Est GFR (CKD-EPI)AfAm 69.71 09/16/18 08:43 Est GFR (CKD-EPI)NonAf 60.14 09/16/18 08:43 POC Glucometer 206 UNITS (80-120) 09/16/18 12:56 Random Glucose 107 mg/dL (74-106) H 09/16/18 08:43 Hemoglobin A1c % 6.9 % (4.2-6.3) H 09/16/18 08:43 Calcium 9.0 mg/dL (8.5-10.1) 09/16/18 08:43 Magnesium 2.2 mg/dL (1.8-2.4) 09/15/18 16:00 Total Bilirubin 1.3 mg/dL (0.2-1) H 09/15/18 16:00 AST 11 U/L (15-37) L 09/15/18 16:00 ALT 19 U/L (13-61) 09/15/18 16:00 Alkaline Phosphatase 102 U/L (45-117) 09/15/18 16:00 Creatine Kinase 50 U/L (26-308) 09/15/18 16:00 Troponin I 0.06 ng/ml (0.00-0.05) H 09/15/18 19:58 B-Natriuretic Peptide 1502.5 pg/ml (5-125) H 09/15/18 16:00 Total Protein 7.1 g/dl (6.4-8.2) 09/15/18 16:00 Albumin 3.8 g/dl (3.4-5.0) 09/15/18 16:00 Triglycerides 164 mg/dL (0-150) H 09/16/18 08:43 Cholesterol 122 mg/dL (50-200) 09/16/18 08:43 Total LDL Cholesterol 71 mg/dL (5-100) 09/16/18 08:43 HDL Cholesterol 33 mg/dL (40-60) L 09/16/18 08:43 Blood Type O POSITIVE 09/15/18 08:43 Antibody Screen Negative 09/15/18 08:43 L/RHC 03/05: wedge 25, PA 65/30, RA 16, CI 1.8. 80-90% dLCx (small vessel): mild diffuse disease of RCA, OM1/OM2/LPL echo 02/05/15: moderate LV dilatation, sev reduced lvef (25-30%), global HK, inf AK, nl RV size/fcn, severe LAE, no sig valve path, at least mild phtn echo 08/2018: mod lve, global hk, lvef 15-20, nl rv, lae, mod mr, mild-mod tr, rvsp 40-50 tele: sr, occ pvcs cxr: clear lungs carotids 08/2018: mild dz, no sig stenosis ecg: sr, nl intervals, inf q's, no ischemic changes, no sig change priors a/p: 58 yo with h/o aflutter s/p ablation (no longer on ac), systolic chf (NICM) , ICD, CKD, HTN, CAD (no pci), possible scarlet fever/rheumatic fever as a child , DM here with change in speech. possible cva: -neuro consulting -carotids unremarkable -echo with stable findings CAD: -borderline trop elevation with flat trend and nl ck, similar to 2016 baseline values, not c/w acs -non obstructive and distal small vessel dz on prior cath, left for med RX -cont asa, statin chronic systolic chf: -has been having worsening cole as outpt and torsemide dose has been increased -no evidence of acute chf now. cont home torsemide 80 bid, coreg, entresto -has outpt appt with chf team at [facility] next mos -s/p icd, outpt f/u ckd: -cr at baseline aflutter: -s/p ablation -in sr here -no longer on ac, cont asa
[2018-09-16] MEDS: ATORVASTATIN CA 80 MG TABLET (FP) PO SCH (21:13)
[2018-09-16] MEDS ORDERED: PT OWN MED DRAWER 7, Y5N ONE (22:24)
[2018-09-17] MEDS: TORSEMIDE 20 MG TABLET (FP) PO SCH (05:33)
[2018-09-17] MEDS: INSULIN SLIDING SCALE (NOVOLOG) 1 VIAL SQ SCH ×5 (08:21→22:37)
--- NOTE | 2018-09-17 08:36 | PN ---
Progress Note, Physician Chief Complaint: slurred speech, MONTGOMERY History of Present Illness: still with PND/orthopnea urinating a lot after torsemide 80 dose. lost 4 lbs since started this, per report no new neuro deficits no cp no palpit ex etoh - Current Medication List Current Medications: Active Medications Acetaminophen (Tylenol -) 650 mg PO Q6H PRN PRN Reason: PAIN 6-10 Last Admin: 09/16/18 13:57 Dose: 650 mg Aspirin (Asa -) 325 mg PO DAILY [facility] Last Admin: 09/16/18 12:10 Dose: Not Given Atorvastatin Calcium (Lipitor -) 80 mg PO HS [facility] Last Admin: 09/16/18 21:13 Dose: 80 mg Carvedilol (Coreg -) 12.5 mg PO BID [facility] Last Admin: 09/16/18 23:58 Dose: 12.5 mg Heparin Sodium (Porcine) (Heparin -) 5,000 unit SQ BID [facility] Last Admin: 09/16/18 21:10 Dose: 5,000 unit Insulin Aspart (Novolog Vial Sliding Scale -) 1 vial SQ [facility]; Protocol Last Admin: 09/17/18 08:22 Dose: Not Given Sacubitril/Valsartan (Entresto 49 Mg-51 Mg Tablet) 1 tab PO BID [facility] Last Admin: 09/16/18 23:58 Dose: 1 tab Torsemide (Demadex -) 80 mg PO BIDLASIX [facility] Last Admin: 09/17/18 05:33 Dose: 80 mg - Objective Vital Signs: Vital Signs Temperature 98.3 F 09/17/18 05:55 Pulse Rate 59 L 09/17/18 05:55 Respiratory Rate 18 09/17/18 05:55 Blood Pressure 117/65 09/17/18 05:55 O2 Sat by Pulse Oximetry (%) 95 09/16/18 21:00 Constitutional: Yes: No Distress, Calm Eyes: No: Sclera Icterus HENT: No: Nasal Congestion Cardiovascular: Yes: Regular Rate and Rhythm, JVD, S1, S2, Other (PMI non diplaced). No: Gallop, Murmur Respiratory: Yes: CTA Bilaterally. No: Accessory Muscle Use, Rales, Wheezes Gastrointestinal: Yes: Normal Bowel Sounds, Soft. No: Tenderness Musculoskeletal: Yes: Other (No kyphosis) Extremities: No: Cyanosis Edema: No Integumentary: No: Jaundice Neurological: Yes: Alert, Oriented (x3) Psychiatric: No: Agitated Labs: CBC, BMP 09/16/18 08:43 09/16/18 08:43 INR, PTT INR 1.03 (0.83-1.09) 09/15/18 16:00 Assessment/Plan L/RHC 03/05: wedge 25, PA 65/30, RA 16, CI 1.8. 80-90% dLCx (small vessel): mild diffuse disease of RCA, OM1/OM2/LPL echo 08/2018: mod lve, global hk, lvef 15-20, nl rv, lae, mod mr, mild-mod tr, rvsp 40-50 cxr: clear lungs ecg: sr, nl intervals, inf q's, no ischemic changes, no sig change priors tele: NSR, VT up to 8 beats a/p: 58 yo with h/o aflutter s/p ablation (no longer on ac), systolic chf (NICM) , ICD, CKD, HTN, CAD (no pci), possible scarlet fever/rheumatic fever as a child , DM here with change in speech. HAs, slurred speech, L arm tingling -neuro input appreciated: old bilateral lacunar infarcts on CT nothing acute, phys exam non-focal: Transient Left hand numbness could be vascular (TIA) but more likely represents Complicated Migraine -migraine tx per neuro -carotids unremarkable -pt has subcutaneous ICD, remote monitoring of which has detected no definitive fib/flutter (most likely sinus with frequent PVCs). has been wearing event monitor at home for past 2-3 weeks with no fib/flutter (frequent ectopy noted). -echo with stable findings here aflutter: -s/p ablation -in sr here -no longer on ac, cont asa chronic systolic chf (Stage C), NSVT: -recent progression of HF with worse E.T, +orthopnea/bendopnea, BNP signif incr and not improving with incr lasix 80 to 80 bid--changed to torsemide 80 bid last week. (note: no apparent volume on exam despite these clinical changes) -09/17: +JVD, ongoing orthopnea/PND on torsemide 80 bid. start lasix 100 iv bid. monitor K/mag and replete to usual aggressive targets -cont home coreg, entresto (doses previously limited by hypotension, fatigue, hyperkalemia). -no spirono given hyperkalemia in past with this--will defer to CHF eval, if feel that spirono will help diuresis and sx's, would have to reduce Entresto dose. -has outpt appt with CHF in 1 week regarding ? evaluation for advanced therapies , transplant -s/p icd, has been stable--routine outpt f/u CAD: -borderline trop elevation with flat trend and nl ck, similar to 2016 baseline values, not c/w acs -non obstructive and distal small vessel dz on prior cath, left for med RX -cont asa, statin ckd: -baseline creat 1.3-1.4 -stable here
[2018-09-17] MEDS ORDERED: PT OWN MED DRAWER 7, Y5N ONE ×5 (09:02→22:29)
[2018-09-17] MEDS: HEPARIN NA (PORCINE) 5,000 UNITS/ML 1ML VIAL SQ SCH ×2 (09:11→22:35)
[2018-09-17] MEDS: ASPIRIN 325 MG TABLET PO SCH (09:11)
[2018-09-17] MEDS: SACUBITRIL/VALSARTAN 49 MG-51 MG TABLET PO SCH ×2 (09:11→22:34)
[2018-09-17] MEDS: CARVEDILOL 12.5 MG TABLET (FP) PO SCH ×2 (09:11→22:34)
[2018-09-17] MEDS: FUROSEMIDE 100 MG/10 ML INJECTABLE VIAL IVPB SCH (13:31)
--- NOTE | 2018-09-17 15:06 | PN ---
Progress Note (short form) - Note Progress Note: Pt seen/ examined chart reviewed awake/ comfortable all consults noted/ appreciated Discussed with pt-- He admits that feels depressed Denies suicidal/ homicidal thoughts Vital Signs Temp 98.1 F 09/17/18 14:44 Pulse 60 09/17/18 14:44 Resp 18 09/17/18 14:44 BP 89/52 L 09/17/18 14:44 Pulse Ox 98 09/17/18 09:00 Intake & Output 09/16/18 09/17/18 09/17/18 23:59 11:59 23:59 Intake Total 50 50 Balance 50 50 Intake: Oral 50 50 Other: Voiding Method Toilet Toilet # Unmeasured Voids Void 2 Bowel Movement No Active Medications Acetaminophen (Tylenol -) 650 mg PO Q6H PRN PRN Reason: PAIN 6-10 Last Admin: 09/16/18 13:57 Dose: 650 mg Aspirin (Asa -) 325 mg PO DAILY [facility] Last Admin: 09/17/18 09:11 Dose: 325 mg Atorvastatin Calcium (Lipitor -) 80 mg PO HS [facility] Last Admin: 09/16/18 21:13 Dose: 80 mg Bupropion HCl (Wellbutrin Xl -) 150 mg PO DAILY [facility] Carvedilol (Coreg -) 12.5 mg PO BID [facility] Last Admin: 09/17/18 09:11 Dose: 12.5 mg Divalproex Sodium (Depakote *Er* -) 250 mg PO DAILY [facility] Furosemide (Lasix Injection -) 100 mg IVPB BID@0600,1400 [facility] Last Admin: 09/17/18 13:31 Dose: 100 mg Heparin Sodium (Porcine) (Heparin -) 5,000 unit SQ BID [facility] Last Admin: 09/17/18 09:11 Dose: 5,000 unit Insulin Aspart (Novolog Vial Sliding Scale -) 1 vial SQ ACHS [facility]; Protocol Last Admin: 09/17/18 11:19 Dose: 2 unit Sacubitril/Valsartan (Entresto 49 Mg-51 Mg Tablet) 1 tab PO BID [facility] Last Admin: 09/17/18 09:11 Dose: 1 tab CBC, BMP 09/16/18 08:43 09/16/18 08:43 Physical exam Awake/ comfortable. S1 s2 regular Lungs decreased at bases Abd- soft, NT no edema. Neuro- alert/ awake PLAN Acute cva Severe lv dysfunction Hypertension Depression Meds reviewed Continue present care Add Wellbutrin and depekote continue lasix monitor labs will follow
[2018-09-17] MEDS: DIVALPROEX NA *ER* EXTEND REL 250 MG TABLET.SA PO SCH (18:28)
[2018-09-17] MEDS: ATORVASTATIN CA 80 MG TABLET (FP) PO SCH (22:34)
[2018-09-18] MEDS: INSULIN SLIDING SCALE (NOVOLOG) 1 VIAL SQ SCH ×3 (06:11→17:03)
[2018-09-18] MEDS: FUROSEMIDE 100 MG/10 ML INJECTABLE VIAL IVPB SCH (06:15)
[2018-09-18 07:08] LABS: SERUM IRON SATURATION 25 % (15-55); TOTAL IRON BINDING CAPACITY 276 ug/dL (250-450)
[2018-09-18 07:37] LABS: BLOOD UREA NITROGEN 40.2 mg/dL (7-18); CALCIUM 9.3 mg/dL (8.5-10.1); CREATININE 1.9 mg/dL (0.55-1.3); MAGNESIUM 2.2 mg/dL (1.8-2.4); POTASSIUM 4.5 mmol/L (3.5-5.1)
--- NOTE | 2018-09-18 08:41 | PN ---
Progress Note, Physician Chief Complaint: sob, [place]/blurry vision History of Present Illness: feels well. no more orthopnea/PND last nite urinated a lot after lasix no cp, palpitations ex etoh - Current Medication List Current Medications: Active Medications Acetaminophen (Tylenol -) 650 mg PO Q6H PRN PRN Reason: PAIN 6-10 Last Admin: 09/16/18 13:57 Dose: 650 mg Aspirin (Asa -) 325 mg PO DAILY [facility] Last Admin: 09/17/18 09:11 Dose: 325 mg Atorvastatin Calcium (Lipitor -) 80 mg PO HS [facility] Last Admin: 09/17/18 22:34 Dose: 80 mg Bupropion HCl (Wellbutrin Xl -) 150 mg PO DAILY [facility] Last Admin: 09/17/18 18:28 Dose: 150 mg Carvedilol (Coreg -) 12.5 mg PO BID [facility] Last Admin: 09/17/18 22:34 Dose: 12.5 mg Divalproex Sodium (Depakote *Er* -) 250 mg PO DAILY [facility] Last Admin: 09/17/18 18:28 Dose: 250 mg Heparin Sodium (Porcine) (Heparin -) 5,000 unit SQ BID [facility] Last Admin: 09/17/18 22:35 Dose: 5,000 unit Insulin Aspart (Novolog Vial Sliding Scale -) 1 vial SQ [facility]; Protocol Last Admin: 09/18/18 06:11 Dose: Not Given Sacubitril/Valsartan (Entresto 49 Mg-51 Mg Tablet) 1 tab PO BID [facility] Last Admin: 09/17/18 22:34 Dose: 1 tab - Objective Vital Signs: Vital Signs Temperature 98.2 F 09/18/18 06:00 Pulse Rate 58 L 09/18/18 06:00 Respiratory Rate 19 09/18/18 06:00 Blood Pressure 139/60 09/18/18 06:00 O2 Sat by Pulse Oximetry (%) 95 09/17/18 20:46 Constitutional: Yes: No Distress, Calm Eyes: No: Sclera Icterus HENT: No: Nasal Congestion Cardiovascular: Yes: Regular Rate and Rhythm, S1, S2, Other (PMI non diplaced). No: JVD, Gallop, Murmur Respiratory: Yes: CTA Bilaterally. No: Accessory Muscle Use, Rales, Wheezes Gastrointestinal: Yes: Normal Bowel Sounds, Soft. No: Tenderness Musculoskeletal: Yes: Other (No kyphosis) Extremities: No: Cold, Cyanosis Edema: No Integumentary: No: Jaundice Neurological: Yes: Alert, Oriented (x3) Psychiatric: No: Agitated Labs: CBC, BMP 09/16/18 08:43 09/18/18 06:02 INR, PTT INR 1.03 (0.83-1.09) 09/15/18 16:00 Assessment/Plan L/RHC 03/05: wedge 25, PA 65/30, RA 16, CI 1.8. 80-90% dLCx (small vessel): mild diffuse disease of RCA, OM1/OM2/LPL echo 08/2018: mod lve, global hk, lvef 15-20, nl rv, lae, mod mr, mild-mod tr, rvsp 40-50 cxr: clear lungs ecg: sr, nl intervals, inf q's, no ischemic changes, no sig change priors tele: NSR, VT up to 5b, PVCs a/p: 58 yo with h/o aflutter s/p ablation (no longer on ac), systolic chf (NICM) , ICD, CKD, HTN, CAD (no pci), possible scarlet fever/rheumatic fever as a child , DM here with change in speech. HAs, slurred speech, L arm tingling -neuro input appreciated: old bilateral lacunar infarcts on CT nothing acute, phys exam non-focal: Transient Left hand numbness could be vascular (TIA) but more likely represents Complicated Migraine -migraine tx per neuro -carotids unremarkable -pt has subcutaneous ICD, remote monitoring of which has detected no definitive fib/flutter (most likely sinus with frequent PVCs). has been wearing event monitor at home for past 2-3 weeks with no fib/flutter (frequent ectopy noted). -echo with stable findings here chronic systolic chf (Stage C), NSVT: -recent progression of HF with worse E.T, +orthopnea/bendopnea, BNP signif incr and not improving with incr lasix 80 to 80 bid--changed to torsemide 80 bid last week. (note: no apparent volume on exam despite these clinical changes) -09/17: +JVD, ongoing orthopnea/PND on torsemide 80 bid. start lasix 100 iv bid. monitor K/mag and replete to usual aggressive targets -09/18: no significant wt decline. bun/creat up significantly. bp's soft. JVD resolved. extremities warm.--suspect he is dry (> cold and wet). hold lasix. cont same entresto for now--monitor creatinine closely. -hypotension, fatigue on carvedilol 25 bid in past. cont 12.5 bid for now--may need decrease if bp's soft sukhi orthostatic bp's -no spirono given hyperkalemia in past with this--will defer to CHF eval, if feel that spirono will help diuresis and sx's, would have to reduce Entresto dose. -d/w'd chf at [facility] (dr leon), will transfer pt for HF optimizatin, evaluation for inotropes need, ? advanced therapies e.g. transplant . family aware and agrees -deferring milrinone for now -s/p icd, has been stable--routine outpt f/u aflutter: -s/p ablation -in sr here -no longer on ac, cont asa CAD: -borderline trop elevation with flat trend and nl ck, similar to 2016 baseline values, not c/w acs -non obstructive and distal small vessel dz on prior cath, left for med RX -cont asa, statin ckd: -baseline creat 1.3-1.4 -stable here ulcerative colitis: -follows in clinic at [facility] -stable with no rectal bleeding of late
[2018-09-18] MEDS ORDERED: PT OWN MED DRAWER 7, Y5N ONE ×2 (10:04→10:26)
[2018-09-18] MEDS: ASPIRIN 325 MG TABLET PO SCH (10:07)
[2018-09-18] MEDS: CARVEDILOL 12.5 MG TABLET (FP) PO SCH (10:07)
[2018-09-18] MEDS: HEPARIN NA (PORCINE) 5,000 UNITS/ML 1ML VIAL SQ SCH (10:07)
[2018-09-18] MEDS: SACUBITRIL/VALSARTAN 49 MG-51 MG TABLET PO SCH (10:08)
[2018-09-18] MEDS: DIVALPROEX NA *ER* EXTEND REL 250 MG TABLET.SA PO SCH (10:08)
[2018-09-18 10:41] VITALS: TEMP 98
[2018-09-18] MEDS: ACETAMINOPHEN 325 MG TABLET (FP) PO PRN (15:00)
[2018-09-18 15:09] VITALS: BP 96/67; PULSE 60
--- NOTE | 2018-09-18 15:23 | PN ---
Progress Note (short form) - Note Progress Note: patient seen and examined. Overall condition same reports--- Dr. Arriola considering transfer to [facility] I reviewed Dr Arriola notes--- no mention of that--we will discuss with him. overall comfortable Denies chest pain or shortness breath Mild headache Vital Signs Temp 98.0 F 09/18/18 15:08 Pulse 60 09/18/18 15:08 Resp 20 09/18/18 15:08 BP 96/67 09/18/18 15:08 Pulse Ox 94 L 09/18/18 09:00 Intake & Output 09/17/18 09/18/18 09/18/18 23:59 11:59 23:59 Intake Total 50 Balance 50 Weight 177 lb 12.8 oz Intake: Oral 50 Other: Voiding Method Toilet Toilet # Unmeasured Voids Void 2 Weight Measurement Method Standing Scale Active Medications Acetaminophen (Tylenol -) 650 mg PO Q6H PRN PRN Reason: PAIN 6-10 Last Admin: 09/18/18 15:00 Dose: 650 mg Aspirin (Asa -) 325 mg PO DAILY [facility] Last Admin: 09/18/18 10:07 Dose: 325 mg Atorvastatin Calcium (Lipitor -) 80 mg PO HS [facility] Last Admin: 09/17/18 22:34 Dose: 80 mg Bupropion HCl (Wellbutrin Xl -) 150 mg PO DAILY [facility] Last Admin: 09/18/18 10:07 Dose: 150 mg Carvedilol (Coreg -) 12.5 mg PO BID [facility] Last Admin: 09/18/18 10:07 Dose: 12.5 mg Divalproex Sodium (Depakote *Er* -) 250 mg PO DAILY [facility] Last Admin: 09/18/18 10:08 Dose: 250 mg Heparin Sodium (Porcine) (Heparin -) 5,000 unit SQ BID [facility] Last Admin: 09/18/18 10:07 Dose: 5,000 unit Insulin Aspart (Novolog Vial Sliding Scale -) 1 vial SQ [facility]; Protocol Last Admin: 09/18/18 11:52 Dose: Not Given Sacubitril/Valsartan (Entresto 49 Mg-51 Mg Tablet) 1 tab PO BID [facility] Last Admin: 09/18/18 10:08 Dose: 1 tab CBC, BMP 09/16/18 08:43 06/30/19 06:02 Physical exam Awake/ comfortable. S1 s2 regular Lungs decreased at bases Abd- soft, NT no edema. Neuro- alert/ awake PLAN chronic CVA Severe lv dysfunction Hypertension Depression Meds reviewed Continue present care Added Wellbutrin and depekote continue lasix cardiology adjusting diuretics monitor labs will follow daily out of bed to chair Problem List - Problems (1) Slurred speech Code(s): R47.81 - SLURRED SPEECH (2) Acute renal insufficiency Code(s): N28.9 - DISORDER OF KIDNEY AND URETER, UNSPECIFIED (3) Diabetes Code(s): E11.9 - TYPE 2 DIABETES MELLITUS WITHOUT COMPLICATIONS Qualifiers: Diabetes mellitus type: type 1 Chronic kidney disease stage: stage 3 ( moderate) Qualified Code(s): E10.22 - Type 1 diabetes mellitus with diabetic chronic kidney disease (4) Systolic congestive heart failure Code(s): I50.20 - UNSPECIFIED SYSTOLIC (CONGESTIVE) HEART FAILURE
== END 2018-09-18 19:40 | disposition short-term general hospital (02) | DRG 102 ==
LOC: JER 15:04 → JERBED 19:54 → J4S 23:40
PROVIDERS: ADMIT Internal Medicine; ATTEND Internal Medicine
DX: G43.109 Migraine with aura, not intractable, without status migrainosus (principal); I50.23 Acute on chronic systolic (congestive) heart failure; I13.0 Hypertensive heart and chronic kidney disease with heart failure and stage 1 through stage 4 chronic kidney disease, or unspecified chronic kidney disease; I47.1 Supraventricular tachycardia; K51.90 Ulcerative colitis, unspecified, without complications; I48.92 Unspecified atrial flutter; N18.9 Chronic kidney disease, unspecified; I25.10 Atherosclerotic heart disease of native coronary artery without angina pectoris; F32.9 Major depressive disorder, single episode, unspecified; R47.81 Slurred speech; E11.9 Type 2 diabetes mellitus without complications
CPT/HCPCS: 36415; 70450-TC; 71046-TC-FY; 80048; 80053; 80061; 82550; 82607; 82962; 83036; 83540; 83550; 83721; 83735; 83880; 84443; 84484; 85025; 85027; 85610; 86850; 86900; 86901; 93005; 93010; 93306-TC; 93880-TC; 97116-GP; 97161-GP; 99285-25; J1644

== ENCOUNTER 2021-05-29 10:45 | Observation (INO) | payer OTHER ==
[2021-05-29 11:58] LABS: BASO % 0.4 % (0-2.0); EOS % 3.1 % (0-4.5); HEMATOCRIT 39.2 % (35.4-49); HEMOGLOBIN 13.1 GM/dL (11.7-16.9); LYMPH % 35.4 % (8-40); MCH 31.2 pg (25.7-33.7); MCHC 33.4 g/dl (32.0-35.9); MEAN CELL VOLUME 93.2 fl (80-96); MEAN PLT VOLUME 8.3 fl (7.5-11.1); MONO % 9.3 % (3.8-10.2); NEUT % 51.8 % (42.8-82.8); PLATELET COUNT 218 10^3/uL (134-434); RDW 13.1 % (11.9-15.9); WHITE BLOOD COUNT 7.2 K/mm3 (4.0-10.0)
[2021-05-29 12:08] LABS: INR 0.93 (0.83-1.09); PROTHROMBIN TIME (PATIENT) 10.7 SEC (9.7-13.0)
[2021-05-29 12:18] LABS: CHLORIDE 105 mmol/L (98-107); SODIUM 139 mmol/L (136-145)
[2021-05-29 12:21] LABS: CALCIUM 8.9 mg/dL (8.5-10.1)
[2021-05-29 12:22] LABS: ALBUMIN 3.6 g/dl (3.4-5.0); ANION GAP 8 MMOL/L (8-16); BLOOD UREA NITROGEN 28.8 mg/dL (7-18); CO2 26 mmol/L (21-32); GLUCOSE,RANDOM 117 mg/dL (74-106)
[2021-05-29 12:25] LABS: CREATININE 1.4 mg/dL (0.55-1.3); SGOT/AST 21 U/L (15-37); SGPT/ALT 30 U/L (13-61)
[2021-05-29 12:26] LABS: BILIRUBIN,TOTAL 0.9 mg/dL (0.2-1); TOT PROT 7.1 g/dl (6.4-8.2)
[2021-05-29 12:28] LABS: ALK PHOS 61 U/L (45-117)
[2021-05-29 12:30] LABS: N-TERMINAL BNP 587.6 pg/ml (5-125)
[2021-05-29] MEDS ORDERED: ASPIRIN 325 MG TABLET PO ONE (15:06)
[2021-05-29] MEDS ORDERED: ASPIRIN 325 MG TABLET ONE (15:20)
[2021-05-29] MEDS: CARVEDILOL 12.5 MG TABLET (FP) PO SCH (21:57)
[2021-05-29] MEDS: FUROSEMIDE 40 MG TABLET (FP) PO SCH (21:57)
[2021-05-29] MEDS: SACUBITRIL/VALSARTAN 49 MG-51 MG TABLET PO SCH (21:57)
[2021-05-29] MEDS ORDERED: ATORVASTATIN CA 20 MG TABLET (FP) PO SCH (22:00)
[2021-05-29 23:46] VITALS: BMI 29.0
[2021-05-30] MEDS ORDERED: REGADENOSON 0.4 MG/5 ML PRE-FILLED SYRINGE IVPUSH ONE ×2 (10:45→15:25)
[2021-05-30] MEDS: CARVEDILOL 12.5 MG TABLET (FP) PO SCH (12:08)
[2021-05-30] MEDS: SACUBITRIL/VALSARTAN 49 MG-51 MG TABLET PO SCH (12:08)
[2021-05-30] MEDS: FUROSEMIDE 40 MG TABLET (FP) PO SCH (12:08)
[2021-05-30 13:07] LABS: SARS-CoV-2 NAA Not Detected (Not Detected)
[2021-05-30 15:31] VITALS: BP 113/69; PULSE 71; TEMP 97.8
== END 2021-05-30 17:54 | disposition home or self-care (01) ==
LOC: JER 10:45 → INTOOBSV 13:42 → JERBED 13:42 → UNDOADMOB 13:42 → J4W 20:45 → JERBED 20:45 → J4W 05-30 09:23
PROVIDERS: ADMIT Internal Medicine; ATTEND Internal Medicine
PROC: 3E033GC Introduction of Other Therapeutic Substance into Peripheral Vein, Percutaneous Approach (ICD-10-PCS; principal; 2021-05-30)
DX: I48.92 Unspecified atrial flutter (principal); I50.30 Unspecified diastolic (congestive) heart failure; I11.0 Hypertensive heart disease with heart failure; I50.9 Heart failure, unspecified; E11.9 Type 2 diabetes mellitus without complications; E11.22 Type 2 diabetes mellitus with diabetic chronic kidney disease; I13.10 Hypertensive heart and chronic kidney disease without heart failure, with stage 1 through stage 4 chronic kidney disease, or unspecified chronic kidney disease; N18.9 Chronic kidney disease, unspecified; K50.90 Crohn's disease, unspecified, without complications; T82.9XXA Unspecified complication of cardiac and vascular prosthetic device, implant and graft, initial encounter; I47.1 Supraventricular tachycardia; F17.210 Nicotine dependence, cigarettes, uncomplicated; E78.5 Hyperlipidemia, unspecified
CPT/HCPCS: 36415; 71045-TC-FY; 78452-TC; 80053; 83735; 83880; 84443; 84484; 85025; 85610; 85730; 93005; 93010; 93017; 93306-TC; 96374; 99285-25; A9502; C9803; G0378; J2785; U0003; U0005